=== PATIENT | female | born 1965 | race Hispanic/Latino ===

== ENCOUNTER → 2019-09-29 | Day surgery (SDC) | payer MEDICARE, OTHER ==
[2019-09-24 12:35] LABS: ANION GAP 17.9 mmol/L (8-16); BLOOD UREA NITROGEN 10 mg/dL (7-26); BUN/CREATININE RATIO 12 (6-25); CALCIUM 10.2 mg/dL (8.4-10.2); CARBON DIOXIDE 23 mmol/L (22-29); CHLORIDE 103 mmol/L (98-107); CREATININE, SERUM 0.83 mg/dL (0.57-1.11); EST GLOMERULAR FILTRATION RATE > 60 ML/MIN (60-); GLUCOSE 118 mg/dL (74-118); POTASSIUM 3.9 mmol/L (3.5-5.1); SODIUM 140 mmol/L (136-145)
[~2019-09-29] MED LIST: ACETAMINOPHEN 1000 MG/100 ML IV ONE; B&O 60MG R/S 60 MG SUPP PR ONE; BOTULINUM TOXIN TYPE A 100 UNIT VIAL IM ONE; CEFTRIAXONE SOD 1 GM/NS 50 ML 50 ML IV ONE; FLUCONAZOLE 200 MG/100 ML 100 ML IV ONE; FLUCONAZOLE 200 MG/100 ML 100 ML IV STA; GABAPENTIN300 MG PO; IOPAMIDOL 300MG/ML 50ML INFUS..BTL IV ONE; LABETALOL HCL 20 ML ONE; LIDOCAINE HCL 2% LOCAL INJ 5 ML SDV VIAL INJ ONE; LIPITOR10 MG PO; LISINOPRIL10 MG PO; MECLIZINE HCL12.5 MG PO; METOPROLOL TART25 MG PO; MYRBETRIQ25 MG PO; NAPROXEN250 MG PO; OMEPRAZOLE20 M2 PO; OXYBUTYNIN CHLOR5 M1 PO; PROPOFOL IV EMULSION 10 MG/ML 20 ML VIAL ONE; SERTRALINE HCL50 MG PO; SEVOFLURANE INHAL SOLN 250 ML PEN BTL ONE; VIT A PO; VIT B12 PO; VIT C PO; VIT D3 PO; VIT E PO
[2019-09-29 08:30] VITALS: BP 149/106
--- NOTE | 2019-09-29 18:41 | Operative Report ---
DATE OF PROCEDURE: 09/29/2019 SURGEON: Jamar Plata MD PREOPERATIVE DIAGNOSES: 1. Refractory urge incontinence. 2. Urinary tract infections. POSTOPERATIVE DIAGNOSES: 1. Refractory urge incontinence. 2. Urinary tract infections. 3. Grade 1 cystocele. 4. Urethral hypermobility. 5. 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 OPERATIONS PERFORMED: 1. Cystourethroscopy with bilateral ureteral catheterization and retrograde ureteropyelography (separate procedure performed for the urinary tract infections). 2. Interpretation of retrograde ureteropyelography. 3. Supervision of fluoroscopy, no radiologist present. 4. Cystourethroscopy with intravesical injection of 100 units of Botox (separate procedure performed for the refractory incontinence). 5. Pelvic examination under anesthesia surgeon. ANESTHESIA: General. COMPLICATIONS: None. CLINICAL SUMMARY: Kerry Sandoval is a 54-year-old woman with the above preoperative diagnoses. She was brought for the above procedure. She is aware of the risks of bleeding, infection, injury to adjacent structures, need for additional procedures and elected to proceed. OPERATIVE PROCEDURE IN DETAIL: Informed consent was verified. Kerry Sandoval was properly identified and taken to the operating room, placed on the cystoscopy table in supine position. Anesthesia was uneventfully begun. The patient was then carefully and gently repositioned in the dorsal lithotomy position with all pressure points were well padded. Her genitalia were prepared and draped in usual sterile fashion. The cystoscope sheath with obturator in place was atraumatically inserted into the patient's urethra and bladder was drained. Panendoscopy revealed grade 2 trabeculations. The normally positioned ureteral orifices were identified, but there was blanching and inflammation of the trigone and surrounding the ureteral orifices. There was also signs of chronic cystitis within the patient's bladder. There was some whitish debris consistent with candidal urinary tract colonization versus infection. No suspicious lesions were identified. An 8-Nepali catheter was used to cannulate each ureter and retrograde ureteropyelograms were performed. Interpretation of retrograde ureteropyelography contrast was instilled in retrograde fashion bilaterally. There were no tumors no stones, and no diverticula. Unobstructed drainage was observed bilaterally fluoroscopically. 100 units of Botox were dissolved in 10 mL of sterile saline, it was then injected in 0.5 mL aliquots in an even distribution throughout the supratrigonal bladder. The patient's bladder was drained. Cystoscope was withdrawn. Pelvic examination under anesthesia revealed atrophic vaginitis with vaginal os stenosis. There was minimal cystocele. No abnormal palpable pelvic masses could be appreciated. There was urethral hypomobility present. The patient was then uneventfully reversed from anesthesia and taken to recovery room in stable condition. There were no complications to the procedure. She tolerated the procedure well. We will plan to follow the patient up in the office in about a month. In the meantime, we will prescribe the patient Ceftin and Diflucan. I very specifically instructed the family that should she have a fever greater than 101, they are to notify us and immediately report to the emergency room for evaluation admission and management. Jamar Plata MD [facility] /[id number]
== END | disposition home or self-care (01) ==
LOC: OR 05:15
PROVIDERS: ATTEND Urology
DX: N39.41 Urge incontinence (principal); N30.20 Other chronic cystitis without hematuria; N32.89 Other specified disorders of bladder; N81.10 Cystocele, unspecified; N36.41 Hypermobility of urethra; N95.2 Postmenopausal atrophic vaginitis; I10 Essential (primary) hypertension; I25.10 Atherosclerotic heart disease of native coronary artery without angina pectoris; G62.9 Polyneuropathy, unspecified; F41.9 Anxiety disorder, unspecified; Z01.810 Encounter for preprocedural cardiovascular examination; Z01.812 Encounter for preprocedural laboratory examination; Z11.59 Encounter for screening for other viral diseases
CPT/HCPCS: 36415; 52005; 52287; 74420; 80048; 87635; 93005; C1758; J0131; J0587; J0696; J1450; J2001; J2704; J3490; Q9967

== ENCOUNTER → 2020-02-10 | Day surgery (SDC) | payer MEDICARE, OTHER ==
[2020-02-08 11:43] LABS: ANION GAP 16.1 mmol/L (8-16); BLOOD UREA NITROGEN 10 mg/dL (7-26); BUN/CREATININE RATIO 12 (6-25); CALCIUM 9.8 mg/dL (8.4-10.2); CARBON DIOXIDE 25 mmol/L (22-29); CHLORIDE 104 mmol/L (98-107); CREATININE, SERUM 0.82 mg/dL (0.57-1.11); EST GLOMERULAR FILTRATION RATE > 60 ML/MIN (60-); GLUCOSE 98 mg/dL (74-118); POTASSIUM 4.1 mmol/L (3.5-5.1); SODIUM 141 mmol/L (136-145)
[~2020-02-10] MED LIST changes: -ACETAMINOPHEN 1000 MG/100 ML IV ONE; -CEFTRIAXONE SOD 1 GM/NS 50 ML 50 ML IV ONE; +CIPRO500 MG PO; +DEXAMETHASONE SOD PHOS INJ 4 MG/ML VIAL ONE; -FLUCONAZOLE 200 MG/100 ML 100 ML IV ONE; -FLUCONAZOLE 200 MG/100 ML 100 ML IV STA; +FUROSEMIDE40 MG PO; +GENTAMICIN 80MG/NS 100 ML 100 ML IV ONE; -LABETALOL HCL 20 ML ONE; +LEVOFLOXACIN 500MG/D5W 100ML 100 ML IV ONE; +MIDAZOLAM HCL 2 MG/2 ML VIAL ONE; +ONDANSETRON HCL INJ 2MG/ML 2ML 2 MG/ML VIAL ONE; +TOLTERODINE TART4 MG PO
[2020-02-10 15:50] VITALS: BP 148/83
== END | disposition home or self-care (01) ==
LOC: OR 12:40
PROVIDERS: ATTEND Urology
DX: N39.41 Urge incontinence (principal); N32.81 Overactive bladder; N30.30 Trigonitis without hematuria; N81.10 Cystocele, unspecified; N95.2 Postmenopausal atrophic vaginitis; I10 Essential (primary) hypertension; I25.10 Atherosclerotic heart disease of native coronary artery without angina pectoris; G62.9 Polyneuropathy, unspecified; R53.1 Weakness; J45.909 Unspecified asthma, uncomplicated; E78.5 Hyperlipidemia, unspecified; Z01.810 Encounter for preprocedural cardiovascular examination; Z01.812 Encounter for preprocedural laboratory examination; Z11.59 Encounter for screening for other viral diseases
CPT/HCPCS: 36415; 52005; 52287; 74420; 80048; 93005; C1758; J0587; J1100; J1580; J1956; J2001; J2250; J2405; J2704; Q9967; U0002

== ENCOUNTER → 2020-05-10 | Day surgery (SDC) | payer MEDICARE, OTHER ==
[~2020-05-10] MED LIST changes: -B&O 60MG R/S 60 MG SUPP PR ONE; -BOTULINUM TOXIN TYPE A 100 UNIT VIAL IM ONE; -DEXAMETHASONE SOD PHOS INJ 4 MG/ML VIAL ONE; +FENTANYL CITRATE/PF 100MCG/2 ML INJ ONE; -GENTAMICIN 80MG/NS 100 ML 100 ML IV ONE; -IOPAMIDOL 300MG/ML 50ML INFUS..BTL IV ONE; -LEVOFLOXACIN 500MG/D5W 100ML 100 ML IV ONE; +MYRBETRIQ50 MG; -ONDANSETRON HCL INJ 2MG/ML 2ML 2 MG/ML VIAL ONE; -SEVOFLURANE INHAL SOLN 250 ML PEN BTL ONE
[2020-05-10 08:03] VITALS: BP 109/60
== END | disposition home or self-care (01) ==
LOC: OR 05:36
PROVIDERS: ATTEND Internal Medicine Gastroenterology
DX: Z12.11 Encounter for screening for malignant neoplasm of colon (principal); K64.8 Other hemorrhoids; Z71.3 Dietary counseling and surveillance; I10 Essential (primary) hypertension; E66.9 Obesity, unspecified; R53.1 Weakness; F32.9 Major depressive disorder, single episode, unspecified; Z01.812 Encounter for preprocedural laboratory examination; Z20.822 Contact with and (suspected) exposure to COVID-19; Z68.34 Body mass index [BMI] 34.0-34.9, adult
CPT/HCPCS: 45378; J2001; J2250; J2704; J3010; U0002

== ENCOUNTER → 2020-05-25 | Day surgery (SDC) | payer MEDICARE, OTHER ==
[2020-05-22 08:34] LABS: BASOPHILS % 0.4 % (0.0-1.0); EOSINOPHILS # (AUTO) 0.2 (0.0-0.4); EOSINOPHILS % 2.2 % (0.0-6.0); HEMATOCRIT 38.5 % (34.2-44.1); HEMOGLOBIN 12.6 g/dL (12.0-16.0); LYMPHOCYTES # (AUTO) 2.5 (1.0-3.2); LYMPHOCYTES % 29.3 % (18.0-39.1); MEAN CORPUSCULAR HGB CONC 32.7 g/dL (31-35); MEAN CORPUSCULAR VOLUME 91.7 fL (81-99); MONOCYTES # (AUTO) 0.5 (0.2-0.8); MONOCYTES % 5.8 % (4.4-11.3); NEUTROPHILS # (AUTO) 5.3 (2.1-6.9); NEUTROPHILS % 61.8 % (38.7-80.0); PLATELET COUNT 164 x10e3/uL (140-360)
[2020-05-22 09:06] LABS: ANION GAP 13.2 mmol/L (8-16); BLOOD UREA NITROGEN 15 mg/dL (7-26); BUN/CREATININE RATIO 20 (6-25); CALCIUM 8.9 mg/dL (8.4-10.2); CARBON DIOXIDE 28 mmol/L (22-29); CHLORIDE 103 mmol/L (98-107); CREATININE, SERUM 0.75 mg/dL (0.57-1.11); EST GLOMERULAR FILTRATION RATE > 60 ML/MIN (60-); GLUCOSE 110 mg/dL (74-118); POTASSIUM 3.2 mmol/L (3.5-5.1); SODIUM 141 mmol/L (136-145)
[~2020-05-25] MED LIST changes: +BUPIVACAINE HCL 0.5% INJ 30 ML VIAL INJ ONE; +DEXAMETHASONE SOD PHOS INJ 4 MG/ML VIAL ONE; +EPHEDRINE SULFATE INJ 50 MG/ML VIAL ONE; -FENTANYL CITRATE/PF 100MCG/2 ML INJ ONE; +GENTAMICIN 80MG/NS 100 ML 100 ML IV ONE; +LIDOCAINE 2%/ EPINEPHRINE 20ML MDV ONE; +LIDOCAINE HCL 2% JELLY 5 ML TUBE ONE; -MIDAZOLAM HCL 2 MG/2 ML VIAL ONE; +ONDANSETRON HCL INJ 2MG/ML 2ML 2 MG/ML VIAL ONE; +OXYBUTYNIN CHLOR5 MG PO; +SEVOFLURANE INHAL SOLN 250 ML PEN BTL ONE; +SUCCINYLCHOLINE CHLORIDE 20 MG/ML 10ML VIAL ONE; +VANCOMYCIN 1GM/NS 250 ML 250 ML ONE
[2020-05-25 12:55] VITALS: BP 141/84
== END | disposition home or self-care (01) ==
LOC: OR 08:38
PROVIDERS: ATTEND Urology
DX: N39.41 Urge incontinence (principal); N39.0 Urinary tract infection, site not specified; R15.9 Full incontinence of feces; I10 Essential (primary) hypertension; E78.00 Pure hypercholesterolemia, unspecified; I25.10 Atherosclerotic heart disease of native coronary artery without angina pectoris; G62.9 Polyneuropathy, unspecified; K21.9 Gastro-esophageal reflux disease without esophagitis; F41.9 Anxiety disorder, unspecified; F32.9 Major depressive disorder, single episode, unspecified; Z01.810 Encounter for preprocedural cardiovascular examination; Z01.812 Encounter for preprocedural laboratory examination; Z20.822 Contact with and (suspected) exposure to COVID-19
CPT/HCPCS: 36415 ×2; 64581; 64590; 76000; 80048; 84132; 85025; 93005; 95972; C1776; C1787; J0330; J1100; J1580; J2001 ×3; J2405; J2704; J3370; L8679; U0002

== ENCOUNTER → 2021-12-18 | Day surgery (SDC) | payer MEDICARE, OTHER ==
[2021-12-16 14:23] LABS: BASOPHILS % 0.3 % (0.0-1.0); EOSINOPHILS # (AUTO) 0.2 (0.0-0.4); EOSINOPHILS % 2.5 % (0.0-6.0); HEMATOCRIT 39.7 % (34.2-44.1); HEMOGLOBIN 12.9 g/dL (12.0-16.0); LYMPHOCYTES # (AUTO) 2.3 (1.0-3.2); LYMPHOCYTES % 25.5 % (18.0-39.1); MEAN CORPUSCULAR HGB CONC 32.5 g/dL (31-35); MEAN CORPUSCULAR VOLUME 92.3 fL (81-99); MONOCYTES # (AUTO) 0.5 (0.2-0.8); MONOCYTES % 5.3 % (4.4-11.3); NEUTROPHILS # (AUTO) 6.1 (2.1-6.9); NEUTROPHILS % 66.1 % (38.7-80.0); PLATELET COUNT 152 x10e3/uL (140-360); RED CELL DISTRIBUTION WIDTH 13.1 % (11.7-14.4)
[2021-12-16 14:35] LABS: ANION GAP 15.2 mmol/L (8-16); CALCIUM 9.3 mg/dL (8.4-10.2); CREATININE, SERUM 0.82 mg/dL (0.57-1.11); POTASSIUM 4.2 mmol/L (3.5-5.1)
[~2021-12-18] MED LIST changes: +B&O 60MG R/S 60 MG SUPP PR ONE; -BUPIVACAINE HCL 0.5% INJ 30 ML VIAL INJ ONE; +CEFTRIAXONE 1 GM VIAL ONE; +DEXAMETHASONE SOD PHOS INJ 4 MG/ML SDV ONE; -DEXAMETHASONE SOD PHOS INJ 4 MG/ML VIAL ONE; -EPHEDRINE SULFATE INJ 50 MG/ML VIAL ONE; +FENTANYL CITRATE/PF 100MCG/2 ML INJ ONE; -GENTAMICIN 80MG/NS 100 ML 100 ML IV ONE; +GENTAMICIN SULFATE 40 MG/ML 2 ML VIAL ONE; +IOPAMIDOL 610MG/1ML 300 MG/ML VIAL IV ONE; -LIDOCAINE 2%/ EPINEPHRINE 20ML MDV ONE; -LIDOCAINE HCL 2% JELLY 5 ML TUBE ONE; +POVIDONE IODINE 0.05% 0.05 % ML PO ONE; -SUCCINYLCHOLINE CHLORIDE 20 MG/ML 10ML VIAL ONE; -VANCOMYCIN 1GM/NS 250 ML 250 ML ONE
[2021-12-18 13:00] VITALS: BP 113/72
== END | disposition home or self-care (01) ==
LOC: OR 07:19
PROVIDERS: ATTEND Urology
DX: N30.10 Interstitial cystitis (chronic) without hematuria (principal); N13.30 Unspecified hydronephrosis; N36.41 Hypermobility of urethra; N39.46 Mixed incontinence; N81.10 Cystocele, unspecified; N95.2 Postmenopausal atrophic vaginitis; N13.8 Other obstructive and reflux uropathy; Z96.82 Presence of neurostimulator; I10 Essential (primary) hypertension; E78.5 Hyperlipidemia, unspecified; I25.10 Atherosclerotic heart disease of native coronary artery without angina pectoris; K21.9 Gastro-esophageal reflux disease without esophagitis; G62.9 Polyneuropathy, unspecified; Z01.810 Encounter for preprocedural cardiovascular examination; Z01.812 Encounter for preprocedural laboratory examination; Z20.822 Contact with and (suspected) exposure to COVID-19; Z79.899 Other long term (current) drug therapy
CPT/HCPCS: 0223U; 36415; 52260; 74420; 80048; 85025; 87086; 87186; 93005; C1758; J0696; J1100; J1580; J2001; J2405; J2704; J3010; Q9967